=== PATIENT | male | born 1980 | race Caucasian/White ===

== ENCOUNTER 2018-10-07 18:57 | Emergency (ER) | payer SELFPAY ==
[~2018-10-07] VITALS: Ht 175.3 cm; Wt 106.6 kg
[2018-10-07] MEDS ORDERED: IV NORMAL SALINE 1000ML BAG 1,000 ML IV SCH (19:10)
[2018-10-07] MEDS ORDERED: KETOROLAC 15 MG/ML VIAL. IV ONE (19:15)
--- NOTE | 2018-10-07 19:25 | PHYS DOC ---
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 Patient is currently residing at a sober living residence and has been off of alcohol and drugs for the past 30 days. He was recently on antibiotics for an arm infection which is improving. Patient also notes a headache that gets worse with coughing , not worst headache of life. Patient last took ibuprofen shortly prior to arriving at the emergency department. Uncertain as to what his maximum temperature was. He notes some chest discomfort when he coughs. Lightheadedness is worse with standing up, better with laying down.[] Review of Systems Review of Systems Constitutional: See history of present illness[] Eyes: Denies change in visual acuity, redness, or eye pain [] HENT: Denies nasal congestion or sore throat [] Respiratory: See history of present illness[] Cardiovascular: No additional information not addressed in HPI [] GI: Denies abdominal pain, nausea, vomiting, bloody stools or diarrhea [] : Denies dysuria or hematuria [] Musculoskeletal: Denies back pain or joint pain [] Integument: Denies rash or skin lesions [] Neurologic: Denies focal weakness or sensory changes [] Endocrine: Denies polyuria or polydipsia [] All other systems were reviewed and found to be within normal limits, except as documented in this note. Current Medications Current Medications Current Medications Medications (Trade) Dose Ordered Sig/David Start Time Stop Time Status Last Admin Dose Admin Ketorolac Tromethamine (Toradol 15mg Vial) 15 mg 1X ONCE 10/07/18 19:15 10/07/18 19:16 DC 10/07/18 19:34 15 MG Oseltamivir Phosphate (Tamiflu) 75 mg 1X STAT 10/07/18 20:13 10/07/18 20:14 DC 10/07/18 20:16 75 MG Sodium Chloride 1,000 ml @ 2,130 mls/hr Q29M 10/07/18 19:10 10/07/18 20:10 DC 10/07/18 19:35 2,130 MLS/HR Allergies Allergies Allergies Coded Allergies Type Severity Reaction Last Updated Verified Penicillins Allergy Unknown rash and hand tingling 10/07/18 Yes levofloxacin Allergy Unknown "i dont know i cant remember it was along time ago" 10/07/18 Yes Physical Exam Physical Exam Constitutional: Well developed, well nourished, ill appearing. [] HENT: Normocephalic, atraumatic, bilateral external ears normal, oropharynx moist, no oral exudates, nose normal. [] Eyes: PERRLA, EOMI, conjunctiva normal, no discharge. [] Neck: Normal range of motion, no tenderness, supple, no stridor. [] Cardiovascular:Heart rate is tachycardic with a regular rhythm, no murmur [] Lungs & Thorax: Bilateral breath sounds clear to auscultation [] Abdomen: Bowel sounds normal, soft, no tenderness, no masses, no pulsatile masses. [] Skin: Warm, dry, no erythema, no rash. [] Back: No tenderness, no CVA tenderness. [] Extremities: No tenderness, no cyanosis, no clubbing, ROM intact, no edema. [] Neurologic: Alert and oriented X 3, normal motor function, normal sensory function, no focal deficits noted. [] Psychologic: Affect normal, judgement normal, mood normal. [] Current Patient Data Vital Signs Vital Signs Date Time Temp Pulse Resp B/P (MAP) Pulse Ox O2 Delivery O2 Flow Rate FiO2 10/07/18 19:35 108 20 99 10/07/18 19:02 99.6 133/68 (89) Room Air 99.6 Lab Values Laboratory Tests Test 10/07/18 19:16 10/07/18 19:31 White Blood Count 4.2 x10^3/uL (4.0-11.0) Red Blood Count 4.50 x10^6/uL (4.30-5.70) Hemoglobin 14.5 g/dL (13.0-17.5) Hematocrit 40.7 % (39.0-53.0) Mean Corpuscular Volume 91 fL (79-100) Mean Corpuscular Hemoglobin 32 pg (25-35) Mean Corpuscular Hemoglobin Concent 36 g/dL (31-37) Red Cell Distribution Width 11.9 % (11.5-14.5) Platelet Count 221 x10^3/uL (140-400) Neutrophils (%) (Auto) 67 % (31-73) Lymphocytes (%) (Auto) 17 % (24-48) L Monocytes (%) (Auto) 15 % (0-9) H Eosinophils (%) (Auto) 1 % (0-3) Basophils (%) (Auto) 1 % (0-3) Neutrophils # (Auto) 2.8 x10^3uL (1.8-7.7) Lymphocytes # (Auto) 0.7 x10^3/uL (1.0-4.8) L Monocytes # (Auto) 0.6 x10^3/uL (0.0-1.1) Eosinophils # (Auto) 0.0 x10^3/uL (0.0-0.7) Basophils # (Auto) 0.0 x10^3/uL (0.0-0.2) Prothrombin Time 13.4 SEC (11.7-14.0) Prothrombin Time INR 1.1 (0.8-1.1) D-Dimer (Ada) 0.44 ug/mlFEU (0.00-0.50) Sodium Level 139 mmol/L (136-145) Potassium Level 4.0 mmol/L (3.5-5.1) Chloride Level 101 mmol/L (98-107) Carbon Dioxide Level 28 mmol/L (21-32) Anion Gap 10 (6-14) Blood Urea Nitrogen 21 mg/dL (8-26) Creatinine 1.1 mg/dL (0.7-1.3) Estimated GFR (Cockcroft-Gault) 74.1 BUN/Creatinine Ratio 19 (6-20) Glucose Level 99 mg/dL (70-99) Lactic Acid Level 0.8 mmol/L (0.4-2.0) Calcium Level 8.7 mg/dL (8.5-10.1) Total Bilirubin 0.2 mg/dL (0.2-1.0) Aspartate Amino Transferase (AST) 28 U/L (15-37) Alanine Aminotransferase (ALT) 83 U/L (16-63) H Alkaline Phosphatase 80 U/L (46-116) Troponin I Quantitative < 0.017 ng/mL (0.000-0.055) Total Protein 7.1 g/dL (6.4-8.2) Albumin 3.7 g/dL (3.4-5.0) Albumin/Globulin Ratio 1.1 (1.0-1.7) Lipase 132 U/L (73-393) Procalcitonin < 0.10 ng/mL (0.00-0.10) Influenza Type A Antigen Positive (NEGATIVE) Influenza Type B Antigen Negative (NEGATIVE) Laboratory Tests 10/07/18 19:16 Laboratory Tests 10/07/18 19:16 EKG EKG EKG shows a sinus rhythm at 109 bpm. Normal axis, QTC of 430 ms, no ST elevations, no old EKG available for comparison[] Radiology/Procedures Radiology/Procedures Chest x-ray showed no infiltrate, no effusion, no pneumothorax.[] Course & Med Decision Making Course & Med Decision Making Pertinent Labs and Imaging studies reviewed. (See chart for details) ED course: Patient arrived, was placed in bed, in tolerated exam well. Patient did receive IV fluid bolus which didn't improve his heart rate. Patient was by mouth tolerant. Patient received an initial dose of Tamiflu while in the emergency department after the return of his positive influenza A test. Findings were discussed with patient who voiced understanding. All questions were answered. Patient was discharged in improved condition. Decision-making: There is no evidence meningitis, encephalitis, pneumonia, nor sepsis. No evidence of by mouth intolerance.[] Dragon Disclaimer Dragon Disclaimer This electronic medical record was generated, in whole or in part, using a voice recognition dictation system. Departure Departure Impression: Primary Impression: Influenza A Disposition: 01 HOME, SELF-CARE Condition: GOOD Referrals: NO PCP (PCP) Patient Instructions: Influenza, Adult Additional Instructions: Drink plenty of fluids. Follow-up with your regular doctor. Return to the ER if worsening pain, difficulty breathing, or any other concerns. Scripts Ondansetron Hcl (ZOFRAN) 4 Mg Tablet 4 MG PO PRN TID PRN for NAUSEA/VOMITING, #15 nausea/vomiting Prov: MARIELA MCDANIELS DO 10/07/18 Ibuprofen (IBUPROFEN) 800 Mg Tablet 800 MG PO PRN TID PRN for pain or fever, #20 TAB take with food or milk to avoid upsetting stomach Prov: MARIELA MCDANIELS DO 10/07/18 Oseltamivir Phosphate (TAMIFLU) 75 Mg Capsule 75 MG PO BID for FLU, #10 TAB 0 Refills Prov: MARIELA MCDANIELS DO 10/07/18 MARIELA MCDANIELS DO Oct 07, 2018 19:25
[2018-10-07 19:28] LABS: BASO % 1 % (0-3); EOS % 1 % (0-3); HEMATOCRIT 40.7 % (39.0-53.0); HEMOGLOBIN 14.5 g/dL (13.0-17.5); LYMPH # 0.7 x10^3/uL (1.0-4.8); LYMPH % 17 % (24-48); MEAN CORPUSCULAR HEMOGLOBIN 32 pg (25-35); MEAN CORPUSCULAR HGB CONC 36 g/dL (31-37); MEAN CORPUSCULAR VOLUME 91 fL (79-100); MONO # 0.6 x10^3/uL (0.0-1.1); MONO % 15 % (0-9); NEUT # 2.8 x10^3uL (1.8-7.7); NEUT % 67 % (31-73); PLATELET COUNT 221 x10^3/uL (140-400); RED CELL DISTRIBUTION WIDTH 11.9 % (11.5-14.5); WHITE BLOOD COUNT 4.2 x10^3/uL (4.0-11.0)
[2018-10-07 19:42] LABS: PROTHROMBIN TIME PATIENT 13.4 SEC (11.7-14.0)
[2018-10-07 19:45] LABS: CALCIUM 8.7 mg/dL (8.5-10.1); CREATININE 1.1 mg/dL (0.7-1.3); GFR 74.1
[2018-10-07 19:47] LABS: D-DIMER 0.44 ug/mlFEU (0.00-0.50)
[2018-10-07 19:53] LABS: ALBUMIN 3.7 g/dL (3.4-5.0); ALBUMIN/GLOBULIN RATIO 1.1 (1.0-1.7); TOTAL BILIRUBIN 0.2 mg/dL (0.2-1.0); TOTAL PROTEIN 7.1 g/dL (6.4-8.2)
[2018-10-07 20:03] VITALS: BP 122/69
[2018-10-07 20:09] LABS: INFLUENZA A PATIENT POSITIVE (NEGATIVE); INFLUENZA B PATIENT NEGATIVE (NEGATIVE)
[2018-10-07] MEDS ORDERED: OSELTAMIVIR 75 MG CAPSULE PO STA (20:13)
[2018-10-07] MEDS ORDERED: IBUP-1060 PO (20:25)
[2018-10-07] MEDS ORDERED: ONDA4TAB7 PO (20:25)
[2018-10-07] MEDS ORDERED: OSEL75CA PO (20:25)
--- NOTE | 2018-10-07 22:36 | RAD ---
EXAM: Chest, single view. HISTORY: Cough and fever. COMPARISON: None. FINDINGS: A frontal view of the chest is obtained. There is no infiltrate, pleural effusion or pneumothorax. The heart is normal in size. There is suspected lingular atelectasis or scarring. IMPRESSION: No acute pulmonary finding. Electronically signed by: Jami Wilson MD (10/07/2018 10:32 PM) [id number]
--- NOTE | 2018-10-08 06:47 | EKG ---
[facility] [address] [place] [id number] Test Date: 2018-10-07 Test Time: 19:06:43 Pat Name: NANY LEO Department: Room: Gender: M [employer]: : 1980 Requested By: MARIELA MCDANIELS Order Number: [id number] Reading MD: Johnson Nye Measurements Intervals [place] Rate: 109 P: 8 [place]: 164 QRS: 6 QRSD: 92 T: 26 QT: 318 QTc: 429 Interpretive Statements SINUS TACHYCARDIA NONSPECIFIC ST-T WAVE CHANGES. 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
== END 2018-10-07 20:28 | disposition home or self-care (01) ==
LOC: ER 18:57
DX: J11.1 Influenza due to unidentified influenza virus with other respiratory manifestations (principal); F17.210 Nicotine dependence, cigarettes, uncomplicated; R79.1 Abnormal coagulation profile; Z88.1 Allergy status to other antibiotic agents; Z88.0 Allergy status to penicillin
CPT/HCPCS: 36415; 71045; 80053; 83605; 83690; 84145; 84484; 85025; 85379; 85610; 87040; 87804; 93005; 96361; 96374; 99284; J1885; J7030